=== PATIENT | female | born 1995 | race Caucasian/White ===

== ENCOUNTER 2017-01-15 09:52 | Emergency (ER) | payer BC ==
--- NOTE | 2017-01-17 02:42 | ER ---
ADMIT: 01/15/2017 RM/LOC: ER [facility] MR#: [id number] [address] [id number] HUSSEIN BOUDREAUX [address] [place] [address] Emergency Room Report SEX: F AGE: 21 : 1995 DATE: 01/15/2017 CHIEF COMPLAINT: Head injury. HISTORY OF PRESENT ILLNESS: A 21-year-old female, who presents 1 hour after she was knocked over by a horse and struck her head on the ground. States she was un-saddling a horse when it knocked her over from a standing position. She fell backwards and hit the back of her head. There was no loss of consciousness. States she has some mild pain about the site where she struck her head. No nausea, vomiting, change in vision, or neck pain. She has been sick recently with some nasal congestion and left ear pain. No back pain, numbness, weakness, chest pain, shortness of breath, or abdominal pain. 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 History of hypothyroidism. COURSE IN THE EMERGENCY ROOM: The patient was seen and examined. GENERAL: She is afebrile and nontoxic. No acute distress. HEAD: She does have some tenderness and swelling right at the vertex of her occiput with an abrasion, very mild. NECK: Nontender. She has a full range of motion. EYES: Equal and reactive. Extraocular muscles intact. NOSE: Has some scant rhinorrhea. Pharynx is nonerythematous. EARS: Left ear does have some fluid behind the membrane. NEURO: She is alert, oriented, cooperative with exam. Cranial nerves are normal as tested. Cerebellar; normal gait, sensation, and motor is equal in the upper and lower extremities. CHEST: Nontender. Breath sounds equal bilaterally. ABDOMEN: Soft and nontender. BACK: No vertebral point tenderness. SKIN: Intact. She does have abrasion on her posterior occiput. I did have a long discussion with the patient and her mother today. Risks and benefits of proceeding with CT scan. I felt on exam today, she was neurologically intact, symptomatically not concerning for intracranial pathology as her only complaint is some mild tenderness about the site where she struck her head. Did participate and shared decision making. Offered a CT scan today, mother and patient both deferred and will pursue conservative observation for the next day for any worsening signs or symptoms with understanding of the need to return with any concerns. ADMIT: 01/15/2017 RM/LOC: [facility] MR#: [id number] [address] [id number] HUSSEIN BOUDREAUX [address] [place] [address] Emergency Room Report SEX: F AGE: 21 : 1995 IMPRESSION: 1. Contusion, posterior occiput. 2. Abrasion, posterior occiput. 3. History of intracranial shunt. DISPOSITION: Patient was discharged home in the care of her mother to continue to monitor for any worsening signs or symptoms including increased headache, nausea, vomiting, change in vision, decreased level of consciousness, or any other concerning signs or symptoms. Tylenol or ibuprofen as needed for pain. Apply ice to the site as needed. Follow up with Dr. Simmons with any concerns. Questions sought and answered to best of my ability and the patient's satisfaction. Discharged in stable condition. DUANE Evans / Viraj Herbert MD / sierral JOB #: [id number] CC: Viraj Herbert MD, Attending Physician Gela Simmons MD, Family Physician
== END 2017-01-15 10:43 | disposition home or self-care (01) ==
LOC: ER 09:52
DX: S00.03XA Contusion of scalp, initial encounter (principal); V80.010A Animal-rider injured by fall from or being thrown from horse in noncollision accident, initial encounter; Y92.830 Public park as the place of occurrence of the external cause; E03.9 Hypothyroidism, unspecified; Z90.89 Acquired absence of other organs